=== PATIENT | female | born 1970 | race African-American/Black ===

== ENCOUNTER 2016-12-02 12:58 | Emergency (ER) | payer MEDICARE, OTHER ==
[~2016-12-02 12:58] MED LIST: ACET500C5 PO; CARI350T PO; CELE-54 PO; CEPH-443 PO; ESOM40CA PO; HYDR-3504; HYDR-762 PO; IBUP-1542 PO; IBUP800T25 PO; LIPA1CAP45; ONDA4TAB35 PO; ONDA4TAB8 PO; TRAM50TA2 PO; [UNRECOGNIZED DRUG - CODE]
== END 2016-12-02 14:07 | disposition left against medical advice (07) ==
LOC: E/R 12:58
DX: Z53.21 Procedure and treatment not carried out due to patient leaving prior to being seen by health care provider (principal)

== ENCOUNTER 2016-12-06 13:43 | Emergency (ER) | payer MEDICARE, OTHER ==
[~2016-12-06] VITALS: Ht 165.1 cm; Wt 122.0 kg
[2016-12-06 13:48] VITALS: Ht 165.1 cm; Wt 122.0 kg
[2016-12-06] MEDS ORDERED: BACI28.34 TOP (14:11)
[2016-12-06] MEDS ORDERED: BACITRACIN 0.9 GM OINT TOP ONE (14:30)
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
== END 2016-12-06 14:39 | disposition home or self-care (01) ==
LOC: FTE 13:43
DX: T22.231A Burn of second degree of right upper arm, initial encounter (principal); X18.XXXA Contact with other hot metals, initial encounter; Y92.89 Other specified places as the place of occurrence of the external cause

== ENCOUNTER 2018-12-17 19:36 | Emergency (ER) | payer MEDICARE, OTHER ==
[~2018-12-17] VITALS: Ht 162.6 cm; Wt 101.7 kg
[~2018-12-17 19:36] MED LIST changes: +BACI28.34 TOP; -IBUP800T25 PO; +IBUP800T48 PO
[2018-12-17 19:57] VITALS: Ht 162.6 cm; Wt 101.7 kg
[2018-12-17] MEDS ORDERED: ACETAMINOPHEN 500 MG TAB PO STA (20:38)
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
[2018-12-17 20:56] VITALS: BP 128/79; PULSE 72; RESP 20
== END 2018-12-17 21:17 | disposition home or self-care (01) ==
LOC: FTE 19:36
DX: M54.9 Dorsalgia, unspecified (principal)
CPT/HCPCS: 99282

== ENCOUNTER → 2018-12-24 | Emergency (ER) | payer OTHER ==
[~2018-12-24] VITALS: Ht 175.3 cm; Wt 100.0 kg
[~2018-12-24] MED LIST changes: +DIPHENHYDRAMINE 50 MG INJ ONE; +HALOPERIDOL 5 MG INJ IM STA; +HALOPERIDOL 5 MG INJ ONE; +LORAZEPAM 2 MG INJ IM STA; +LORAZEPAM 2 MG INJ ONE
[2018-12-24 20:46] VITALS: Ht 175.3 cm; Wt 100.0 kg
[2018-12-24 23:05] VITALS: BP 119/72; PULSE 80; RESP 22
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
== END ==
LOC: E/R 20:35
DX: F43.0 Acute stress reaction (principal); F14.10 Cocaine abuse, uncomplicated
CPT/HCPCS: 80053; 80307; 81001; 85025; 85610; 85730; 96372; 99284; J1200; J1630; J2060